=== PATIENT | female | born 1990 | race Two or more races ===

== ENCOUNTER 2019-12-05 18:34 | Emergency (ER) | payer OTHER ==
[~2019-12-05] VITALS: Ht 170.2 cm; Wt 72.3 kg
--- NOTE | 2019-12-05 20:25 | NUR ---
PT WALKED TO ROOM AT THIS TIME WITH STEADY GAIT AND NAD
--- NOTE | 2019-12-05 20:34 | NUR ---
PT WALKED BACK FROM LOBBY TO ROOM AT THIS TIME. PT STEADY UPON AMBULATION. ASSUMED CARE OF PT.
--- NOTE | 2019-12-05 20:51 | NUR ---
THIS IS A 29 YO FEMALE WHO PRESENTS TO THE ER C/O "I FELT A GUSH OF BLOOD AND SOAKED MY PANTS TODAY AND SAW A CLOT". PT IS 15 WEEKS . G - 2 P -0 A - 1. PT HAD A PREVIOUS MISCARRIAGE AND HAS ALREADY SOUGHT CARE. PT AO X 4. SKIN PWD. RESP EVEN AND UNLABORED. PT DENIES CRAMPING OR N/V. AT BEDSIDE. CALL LIGHT WITHIN REACH. WILL CONT TO MONITOR PT.
[2019-12-05 21:37] LABS: BASOPHILS # (AUTO) 0.02 x10^3/uL (0-0.1); BASOPHILS % (AUTO) 0 % (0-1); EOSINOPHILS # (AUTO) 0.05 x10^3/uL (0-0.4); EOSINOPHILS % (AUTO) 1 % (1-7); LYMPHOCYTES % (AUTO) 27 % (22-44); MD NO; MEAN CORPUSCULAR HEMOGLOBIN 30.2 pg (27.0-34.8); MEAN CORPUSCULAR HGB CONC 34.4 g/dL (32.4-35.8); MEAN CORPUSCULAR VOLUME 87.7 fL (80-100); MEAN PLATELET VOLUME 7.4 fL (7.4-10.4); MONOCYTES # (AUTO) 0.43 x10^3/uL (0.2-0.8); MONOCYTES % (AUTO) 5 % (2-9); NEUTROPHILS # (AUTO) 5.81 x10^3/uL (1.8-6.8); NEUTROPHILS % (AUTO) 67 % (42-75); PLATELET COUNT 276 x10^3/uL (130-400); RED BLOOD COUNT 4.26 x10^6/uL (3.82-5.3); RED CELL DISTRIBUTION WIDTH 12.5 % (9.6-15.2)
[2019-12-05 21:49] LABS: ALANINE AMINOTRANSFERASE 13 U/L (12-78); ALBUMIN 3.5 g/dL (3.4-5.0); ANION GAP 8 mmol/L (5-15); CHLORIDE 106 mmol/L (98-107); CREATININE 0.57 mg/dL (0.55-1.02)
[2019-12-05 22:06] LABS: ALKALINE PHOSPHATASE 46 U/L (45-117); BILIRUBIN,TOTAL 0.4 mg/dL (0.2-1.0); TOTAL PROTEIN 7.5 g/dL (6.4-8.2)
--- NOTE | 2019-12-05 22:14 | NUR ---
JULIO MELGAR AT BEDSIDE FOR EVAL. PER JULIO MELGAR, PT MAY HAVE FOOD. PT PROVIDED WITH CEREAL. PT AO X 4. SKIN PWD. RESP EVEN AND UNLABORED. PT AWARE THAT WE ARE WAITING FOR LAB RESULTS. AT BEDSIDE. PT ON CONT BP AND O2 MONITORS. CALL LIGHT WITHIN REACH. WILL CONT TO MONITOR PT.
[2019-12-05 23:18] VITALS: BP 101/62
== END 2019-12-05 23:37 | disposition home or self-care (01) ==
LOC: ED 23:32
DX: O20.0 Threatened abortion (principal); N93.8 Other specified abnormal uterine and vaginal bleeding; Z3A.13 13 weeks gestation of pregnancy
CPT/HCPCS: 36415; 76801; 80053; 84702; 85025; 86901; 99285

== ENCOUNTER → 2020-06-03 | Outpatient (CLI) | payer OTHER | END | disposition home or self-care (01) | LOC: STAR 08:37 | PROVIDERS: ATTEND Obstetrics & Gynecology | DX: Z01.818 Encounter for other preprocedural examination (principal); Z11.59 Encounter for screening for other viral diseases | CPT/HCPCS: 36415; 87635 ==